=== PATIENT | male | born 1950 | race Caucasian/White ===

== ENCOUNTER 2017-10-02 10:30 | Inpatient (IN) | payer OTHER ==
[~2017-10-02] VITALS: Ht 177.8 cm; Wt 90.7 kg
[~2017-10-02 10:30] MED LIST: ATIVAN2 M1 PO; LIPITOR40 MG PO; LISINOPRIL20 MG PO; SERTRALINE HCL50 MG PO; TRAZODONE HCL50 MG PO
== END 2017-10-11 11:00 | disposition home or self-care (01) | DRG 708 ==
LOC: SURG 10-09 06:15 → O/R 10-09 06:15 → SURH 10-09 07:00 → SURG 10-09 15:45 → SURH 10-10 10:30 → SURG 10-11 11:00
PROVIDERS: Urology
PROC: 07TC0ZZ Resection of Pelvis Lymphatic, Open Approach (ICD-10-PCS; 2017-10-09)
PROC: 0VT00ZZ Resection of Prostate, Open Approach (ICD-10-PCS; principal; 2017-10-09 07:15)
DX: C61 Malignant neoplasm of prostate (principal)